=== PATIENT | male | born 1955 | race Caucasian/White ===

== ENCOUNTER 2024-05-25 05:40 | Inpatient (IN) | payer MEDICARE, OTHER ==
[~2024-05-25] VITALS: Ht 172.7 cm; Wt 87.1 kg
[2024-05-25 06:59] VITALS: BP 121/63; TEMP 97.5; O2SAT 98
[2024-05-25] MEDS ORDERED: dexaMETHasone SOD PHOSPHATE 2 ML ONE (06:59)
[2024-05-25] MEDS ORDERED: LIDOCAINE 2%-EPI 1:200,000 20 ML VIAL IJ ONE (06:59)
[2024-05-25] MEDS ORDERED: ANESTHESIA TRAY IN PYXIS 1 EA TRAY MC ONE (06:59)
[2024-05-25] MEDS ORDERED: VANCOMYCIN 1 GM VIAL ONE (06:59)
[2024-05-25] MEDS ORDERED: FENTANYL PF 250MCG/5ML AMPUL ONE (07:15)
[2024-05-25] MEDS ORDERED: ROCURONIUM BROMIDE 50 MG/5 ML ONE (07:15)
[2024-05-25] MEDS ORDERED: LABETALOL HCL IV 100MG VIAL ONE (07:39)
[2024-05-25] MEDS ORDERED: ONDANSETRON HCL/PF 4 MG/2 ML VIAL IV PRN ×2 (10:30→12:00)
[2024-05-25] MEDS ORDERED: FENTANYL PF 100MCG/2ML AMPUL IV SCH (10:30)
[2024-05-25 11:00] VITALS: BP 122/65; TEMP 98; O2SAT 98
[2024-05-25 12:00] VITALS: BP 122/60; TEMP 98.4; O2SAT 94
[2024-05-25] MEDS ORDERED: Z GUARD REMEDY 4 OZ OINT TP PRN (12:00)
[2024-05-25] MEDS ORDERED: ONDANSETRON HCL/PF 4 MG/2 ML VIAL IVP PRN (12:00)
[2024-05-25] MEDS ORDERED: MAG HYDROX/AL HYDROX/SIMETH 30 ML UDC PO PRN (12:00)
[2024-05-25] MEDS ORDERED: ACETAMINOPHEN 325 MG TABLET PO PRN ×2 (12:00)
[2024-05-25] MEDS ORDERED: HYDROMORPHONE 1 MG/1 ML DISP.SYRIN IV PRN (12:00)
[2024-05-25] MEDS ORDERED: MAGNESIUM HYDROXIDE 30 ML UDC PO PRN (12:00)
[2024-05-25] MEDS: IV NS 0.9% 1,000 ML IV PRN (12:08)
[2024-05-25] MEDS ORDERED: ROSU5TAB13 PO (12:30)
[2024-05-25 16:00] VITALS: BP 131/67; TEMP 98.1; O2SAT 96
[2024-05-25] MEDS: VANCOMYCIN 1 GM in IV D5W 250ml IV SCH (18:00)
[2024-05-25 20:00] VITALS: BP 119/52; TEMP 98.2; O2SAT 95
[2024-05-26 06:48] LABS: BASOPHILS % (AUTO) 0.1 % (0.0-2.0); EOSINOPHILS % (AUTO) 0.1 % (0.0-6.0); HEMATOCRIT 38 % (39-51); HEMOGLOBIN 12.9 g/dL (13.5-17.5); LYMPHOCYTES # (AUTO) 1.6 K/uL (0.8-4.8); MEAN CORPUSCULAR HEMOGLOBIN 29 PG (26.0-33.0); MEAN CORPUSCULAR HGB CONC 34 g/dl (31.0-36.0); MEAN CORPUSCULAR VOLUME 86 fL (80-96); MONOCYTES # (AUTO) 0.9 K/uL (0.1-1.30); NEUTROPHILS # (AUTO) 7.1 K/uL (1.8-8.9); NEUTROPHILS % (AUTO) 73.8 % (43.0-81.0); PLATELET COUNT (AUTO) 175 K/uL (150-450); RED BLOOD CELL COUNT(AUTO) 4.39 MIL/uL (4.5-6.0); RED CELL DISTRIBUTION WIDTH 13.8 % (11.5-15.0); WHITE BLOOD COUNT (AUTO) 9.6 K/uL (4.3-11.0)
[2024-05-26 07:15] LABS: MAGNESIUM 2.4 mg/dL (1.8-2.4); PHOSPHORUS 3.1 mg/dL (2.5-4.9); POTASSIUM 4.2 mmol/L (3.5-5.1)
[2024-05-26 08:00] VITALS: BP 112/54; TEMP 98.6; O2SAT 98
== END 2024-05-26 12:40 | disposition home or self-care (01) | DRG 497 ==
LOC: DS 05:40 → MED 05:44
PROVIDERS: ADMIT Nurse Practitioner Family; ATTEND Student in an Organized Health Care Education/Training Program
PROC: 0WB30ZX Excision of Oral Cavity and Throat, Open Approach, Diagnostic (ICD-10-PCS; principal; 2024-05-25)
PROC: 0N5R0ZZ Destruction of Maxilla, Open Approach (ICD-10-PCS; 2024-05-25)
PROC: 0NUR07Z Supplement Maxilla with Autologous Tissue Substitute, Open Approach (ICD-10-PCS; 2024-05-25)
PROC: 0NBV0ZZ Excision of Left Mandible, Open Approach (ICD-10-PCS; 2024-05-25)
PROC: 0N5T0ZZ Destruction of Right Mandible, Open Approach (ICD-10-PCS; 2024-05-25)
PROC: 0N5V0ZZ Destruction of Left Mandible, Open Approach (ICD-10-PCS; 2024-05-25)
PROC: 0NUT07Z Supplement Right Mandible with Autologous Tissue Substitute, Open Approach (ICD-10-PCS; 2024-05-25)
PROC: 0NSR04Z Reposition Maxilla with Internal Fixation Device, Open Approach (ICD-10-PCS; 2024-05-25)
PROC: 0NHV04Z Insertion of Internal Fixation Device into Left Mandible, Open Approach (ICD-10-PCS; 2024-05-25)
PROC: 0NHT04Z Insertion of Internal Fixation Device into Right Mandible, Open Approach (ICD-10-PCS; 2024-05-25)
DX: S02.40CK Maxillary fracture, right side, subsequent encounter for fracture with nonunion (principal); M27.2 Inflammatory conditions of jaws; S02.69XK Fracture of mandible of other specified site, subsequent encounter for fracture with nonunion; E78.5 Hyperlipidemia, unspecified; M85.68 Other cyst of bone, other site; X58.XXXD Exposure to other specified factors, subsequent encounter; J32.0 Chronic maxillary sinusitis; D16.4 Benign neoplasm of bones of skull and face; Z87.891 Personal history of nicotine dependence; R73.9 Hyperglycemia, unspecified
CPT/HCPCS: 36415; 80048-TC; 80061-TC; 83735-TC; 84100-TC; 85025-TC; A4223; A4338; C1713; G0378; J0461; J0690; J1100; J2704; J3010; J3370; J3490; J7030; J7060

== ENCOUNTER 2024-10-09 09:34 | Inpatient (IN) | payer MEDICARE, OTHER ==
[~2024-10-09 09:34] MED LIST: ROSU5TAB13 PO
[2024-10-09 10:44] LABS: INR 1.02 (0.91-1.10); PARTIAL THROMBOPLASTIN TIME 26.8 SEC (24.3-34.3); PROTHROMBIN TIME 10.8 SECS (9.2-11.1)
[2024-10-09] MEDS ORDERED: ROCURONIUM BROMIDE 50 MG/5 ML ONE ×2 (12:41→13:24)
[2024-10-09] MEDS ORDERED: LIDOCAINE 2%-EPI 1:100,000 30 ML VIAL ONE (12:46)
[2024-10-09] MEDS ORDERED: dexaMETHasone SOD PHOSPHATE 2 ML ONE (12:46)
[2024-10-09] MEDS ORDERED: VANCOMYCIN 1 GM VIAL ONE (12:46)
[2024-10-09 15:30] VITALS: BP 104/51; TEMP 97.7; O2SAT 95
[2024-10-09] MEDS ORDERED: ONDANSETRON HCL/PF 4 MG/2 ML VIAL IVP PRN (16:30)
[2024-10-09] MEDS ORDERED: ACETAMINOPHEN 325 MG TABLET PO PRN (16:30)
[2024-10-09] MEDS ORDERED: HYDROMORPHONE 1 MG/1 ML DISP.SYRIN IV PRN (16:30)
[2024-10-09] MEDS: IV NS 0.9% 1,000 ML IV PRN (18:00)
[2024-10-09 20:00] VITALS: BP 111/52; TEMP 97.7; O2SAT 95
[2024-10-10] MEDS: VANCOMYCIN 1 GM in IV D5W 250ml IV SCH (00:51)
[2024-10-10 07:00] VITALS: BP 105/52; TEMP 98.1; O2SAT 95
== END 2024-10-10 16:20 | disposition home or self-care (01) | DRG 496 ==
LOC: DS 09:34 → MED 14:35
PROC: 0N5R0ZZ Destruction of Maxilla, Open Approach (ICD-10-PCS; 2024-10-09)
PROC: 0N5V0ZZ Destruction of Left Mandible, Open Approach (ICD-10-PCS; 2024-10-09)
PROC: 0WB30ZZ Excision of Oral Cavity and Throat, Open Approach (ICD-10-PCS; 2024-10-09)
PROC: 0NPW04Z Removal of Internal Fixation Device from Facial Bone, Open Approach (ICD-10-PCS; principal; 2024-10-09 12:20)
DX: T84.69XA Infection and inflammatory reaction due to internal fixation device of other site, initial encounter (principal); T81.83XA Persistent postprocedural fistula, initial encounter; Y83.8 Other surgical procedures as the cause of abnormal reaction of the patient, or of later complication, without mention of misadventure at the time of the procedure; E11.9 Type 2 diabetes mellitus without complications; E78.5 Hyperlipidemia, unspecified; Z87.891 Personal history of nicotine dependence; M89.38 Hypertrophy of bone, other site; K13.79 Other lesions of oral mucosa; J32.0 Chronic maxillary sinusitis; M27.2 Inflammatory conditions of jaws; Y92.009 Unspecified place in unspecified non-institutional (private) residence as the place of occurrence of the external cause; Z82.49 Family history of ischemic heart disease and other diseases of the circulatory system
CPT/HCPCS: 36415; 85610-TC; 85730-TC; 88300-TC; 88305-TC; 88311-TC; A4223; A4338; G0378; J0461; J0690; J1100; J2704; J3370; J3490; J7030; J7060